=== PATIENT | female | born 1980 | race Caucasian/White ===

== ENCOUNTER 2018-06-29 17:34 | Emergency (ER) | payer BC, OTHER ==
[2018-06-29] MEDS ORDERED: NS 0.9% 1000 ML** 1,000 ML IV ONE (21:27)
--- NOTE | 2018-06-29 21:32 | ED ---
Syncope/Near Syncope - HPI Summary HPI Summary: This patient is a 37 year old female presenting to [facility] with a chief complaint of syncope 6 hours ago. She states she was working in her kitchen when the episode occurred. She said this has occurred before. She reports hearing the ocean post syncope. She said she experienced vertigo as well. She says she is currently feeling sleepy. - History Of Current Complaint Chief Complaint: EDSyncope Hx Obtained From: Patient Onset/Duration: Sudden Onset Timing: Seconds Associated Head Trauma: No Associated Signs And Symptoms: Dizzy - Allergies/Home Medications Allergies/Adverse Reactions: Allergies Allergy/AdvReac Type Severity Reaction Status Date / Time sulfamethoxazole Allergy Anaphylatic Verified 06/29/18 17:47 [From Bactrim] Shock trimethoprim [From Bactrim] Allergy Anaphylatic Verified 06/29/18 17:47 Shock Home Medications: Home Medications Amphetamine/Dextroamph ER(NF) [Adderal XR (NF)] 40 mg PO DAILY 06/29/18 [ History Confirmed 06/29/18] PMH/Surg Hx/FS Hx/Imm Hx Cardiovascular History: Denies: Hx Hypertension Respiratory History: Denies: Hx Asthma Infectious Disease History: No Infectious Disease History: Denies: Traveled Outside the [place] in Last 30 Days - Family History Known Family History: Negative: Cardiac Disease - Social History Alcohol Use: Occasionally Substance Use Type: Reports: None Smoking Status (MU): Former Smoker Review of Systems Negative: Fever Neurological: Other - Vertigo Positive: Syncope All Other Systems Reviewed And Are Negative: Yes Physical Exam - Summary Physical Exam Summary: VITAL SIGNS: Reviewed. GENERAL: Patient is a well-developed and nourished FEMALE who is lying comfortable in the stretcher. Patient is not in any acute respiratory distress. HEAD AND FACE: No signs of trauma. No ecchymosis, hematomas or skull depressions. No sinus tenderness. EYES: PERRLA, EOMI x 2, No injected conjunctiva, no nystagmus. EARS: Hearing grossly intact. Ear canals and tympanic membranes are within normal limits. MOUTH: Oropharynx within normal limits. NECK: Supple, trachea is midline, no adenopathy, no JVD, no carotid bruit, no c- spine tenderness, neck with full ROM. CHEST: Symmetric, no tenderness at palpation LUNGS: Clear to auscultation bilaterally. No wheezing or crackles. CVS: Regular rate and rhythm, S1 and S2 present, no murmurs or gallops appreciated. ABDOMEN: Soft, non-tender. No signs of distention. No rebound no guarding, and no masses palpated. Bowel sounds are normal. EXTREMITIES: FROM in all major joints, no edema, no cyanosis or clubbing. NEURO: Alert and oriented x 3. No acute neurological deficits. Speech is normal and follows commands. SKIN: Dry and warm Triage Information Reviewed: Yes Vital Signs On Initial Exam: Initial Vitals Temp Pulse Resp BP Pulse Ox 98.8 F 77 14 133/74 99 06/29/18 17:48 06/29/18 17:48 06/29/18 17:48 06/29/18 17:48 06/29/18 17:48 Vital Signs Reviewed: Yes Diagnostics - Vital Signs Vital Signs Temp Pulse Resp BP Pulse Ox 06/29/18 21:12 71 12 100 06/29/18 21:11 68 15 118/87 100 06/29/18 19:51 98.7 F 84 16 127/96 100 06/29/18 17:48 98.8 F 77 14 133/74 99 - Laboratory Result Diagrams: 06/29/18 21:49 06/29/18 21:49 Lab Statement: Any lab studies that have been ordered have been reviewed, and results considered in the medical decision making process. - EKG 2007 Cardiac Rate: NL EKG Rhythm: Sinus Rhythm - [address] Segment: Normal Ectopy: None Summary of EKG Findings: Normal axis, normal interval, no ischemic changes. Course/Dx Course Of Treatment: This patient is a 37 year old female presenting to [facility] with a chief complaint of syncope 6 hours ago. EKG and labs were unremarkable for cardiopulmonary problems. She was instructed to follow up with cardiology on Sunday and discharged. The patient is agreeable with this plan. - Diagnoses Provider Diagnoses: Syncope Discharge - Sign-Out/Discharge Documenting (check all that apply): Patient Departure - Discharge Patient Received Moderate/Deep Sedation with Procedure: No - Discharge Plan Condition: Stable Disposition: HOME Patient Education Materials: Syncope (ED) Referrals: [facility] [Provider Group] Additional Instructions: Return to ED with any new or worsening symptoms. Follow up with Cardiology in 2 days. No exercise until cleared by Cardiology. - Attestation Statements Document Initiated by Scribe: Yes Documenting Scribe: Keenan Biggs Provider For Whom Scribe is Documenting (Include Credential): Stephanie Oropeza MD Scribe Attestation: I, Keenan Biggs, scribed for Stephanie Oropeza MD on 06/30/18 at 0001. Status of Scribe Document: Ready
[2018-06-29 21:59] LABS: ABS Basophils 0.1 10^3/ul (0-0.2); ABS Eosinophils 0.5 10^3/ul (0-0.6); ABS Lymphocytes 1.4 10^3/ul (1.0-4.8); ABS Monocytes 0.5 10^3/ul (0-0.8); ABS Neutrophils 2.8 10^3/ul (1.5-7.7); ABS Nucleated RBC 0 10^3/ul; Eosinophil % 9.1 %; Hematocrit 39 % (33-41); Hemoglobin 12.9 g/dL (12.0-16.0); Lymphocyte % 25.8 %; Mean Corpuscular HGB Conc 33 g/dL (31-36); Mean Corpuscular Hemoglobin 32 pg (27-31); Mean Corpuscular Volume 96 fL (80-97); Mean Platelet Volume 7.4 fL (7.4-10.4); Nucleated Red Blood Cells % 0; Platelet Count 231 10^3/uL (150-450); Red Blood Count 4.09 10^6 /uL (3.70-4.87); Red Cell Distribution Width 13 % (10.5-15); White Blood Count 5.3 10^3/uL (3.5-10.8)
[2018-06-29 22:11] LABS: Activated Partial Thrombo Time 30.8 seconds (26.0-36.3); INR 0.97 (0.77-1.02)
[2018-06-29 22:19] LABS: ALT 9 U/L (7-52); AST 12 U/L (13-39); Albumin 3.8 g/dL (3.2-5.2); Albumin/Globulin Ratio 1.6 (1-3); Alkaline Phosphatase 46 U/L (34-104); Anion Gap 3 mmol/L (2-11); Blood Urea Nitrogen 13 mg/dL (6-24); CO2 Carbon Dioxide 27 mmol/L (22-32); Calcium 8.9 mg/dL (8.6-10.3); Chloride 108 mmol/L (101-111); EGFR African American 131.1 (>60); EGFR Non-African American 108.3 (>60); Globulin 2.4 g/dL (2-4); Glucose 101 mg/dL (70-100); Magnesium 2.1 mg/dL (1.9-2.7); Potassium 4.7 mmol/L (3.5-5.0); Sodium 138 mmol/L (135-145); Total Protein 6.2 g/dL (6.4-8.9)
[2018-06-29 22:25] LABS: HCG Pregnancy < 0.60 mIU/mL
[2018-06-29 22:40] LABS: TSH (Thyroid Stimulating Horm) 0.58 mcIU/mL (0.34-5.60)
[2018-06-30 00:12] VITALS: BP 107/75
== END 2018-06-30 00:17 | disposition home or self-care (01) ==
LOC: ED 17:34
DX: R55 Syncope and collapse (principal); Z87.891 Personal history of nicotine dependence; Z88.2 Allergy status to sulfonamides
CPT/HCPCS: 36415; 80053; 83735; 84443; 84484; 84702; 85025; 85610; 85730; 86703; 93005; 96360; 99283

== ENCOUNTER 2018-09-26 21:30 | Emergency (ER) | payer OTHER ==
--- NOTE | 2018-09-26 22:05 | ED ---
Laceration/Wound HPI - HPI Summary HPI Summary: Pt is a 38 y/o F presenting to the ED with a chief complaint of a facial injury. 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 She reports bleeding, edema, and facial pain, as well as dental pain. She is not injured anywhere else. She is unsure about when her last Tetanus shot was. - History of Current Complaint Stated Complaint: FELL ON MY FACE PER PT Time Seen by Provider: 09/26/18 21:43 Hx Obtained From: Patient Mechanism of Injury: Sharp/Blunt Trauma Onset/Duration: Sudden Onset, Lasting Minutes, Still Present Aggravating: Nothing Alleviating: Nothing Timing: Constant Onset Severity: Moderate Current Severity: Moderate Pain Intensity: 4 Pain Scale Used: 0-10 Numeric Associated Signs & Symptoms: Redness, Pain - Allergy/Home Medications Allergies/Adverse Reactions: Allergies Allergy/AdvReac Type Severity Reaction Status Date / Time sulfamethoxazole Allergy Anaphylatic Verified 09/26/18 21:35 [From Bactrim] Shock trimethoprim [From Bactrim] Allergy Anaphylatic Verified 09/26/18 21:35 Shock PMH/Surg Hx/FS Hx/Imm Hx Previously Healthy: Yes Endocrine/Hematology History: Denies: Hx Diabetes Cardiovascular History: Denies: Hx Hypertension Respiratory History: Denies: Hx Asthma Infectious Disease History: No Infectious Disease History: Denies: Traveled Outside the [place] in Last 30 Days - Family History Known Family History: Negative: Cardiac Disease - Social History Alcohol Use: Occasionally Hx Substance Use: No Substance Use Type: Reports: None Hx Tobacco Use: Yes Smoking Status (MU): Former Smoker Review of Systems Positive: Dental Pain, Other - bleeding in gums, broken teeth. Positive: Edema - upper lip Positive: Other - laceration to R upper lip All Other Systems Reviewed And Are Negative: Yes Physical Exam - Summary Physical Exam Summary: Constitutional: Well-developed, Well-nourished, Alert. (-) Distressed Skin: Warm, Dry HENT: Normocephalic. There is a tiny puncture just below the lower lip midline, with associated puncture on the inside of the lip. There is no injury to upper lip on the inside. The R primary and secondary incisors are chipped, but there is no pulp exposure of either tooth. There is mild blood present around the gumline where the teeth meet the gums. The R side of her upper lip has a laceration measuring approx. 3mm, not involving the Vermilion border, purely on the lip itself. Eyes: Conjunctiva normal Neck: Musculoskeletal ROM normal neck. (-) JVD, (-) Stridor, (-) Tracheal deviation Cardio: Rhythm regular, rate normal, Heart sounds normal; Intact distal pulses; The pedal pulses are 2+ and symmetric. Radial pulses are 2+ and symmetric. Pulmonary/Chest wall: Effort normal. (-) Respiratory distress, (-) Wheezes, (-) Rales Abd: Soft, (-) tenderness, (-) Distension, (-) Guarding, (-) Rebound Musculoskeletal: (-) Edema Neuro: Alert, Oriented x3 Psych: Mood and affect Normal Triage Information Reviewed: Yes Vital Signs On Initial Exam: Initial Vitals Temp Pulse Resp BP Pulse Ox 99.6 F 112 16 148/78 100 09/26/18 21:30 09/26/18 21:30 09/26/18 21:30 09/26/18 21:30 09/26/18 21:30 Vital Signs Reviewed: Yes Procedures - Laceration/Wound Repair 1 Location: mouth - R upper lip Description: Irregular - shaped Anesthesia: Local, 1.0%, Lido Betadine Prep?: No - soap and water Laceration/Wound Explored: clean Closure: Single Layer Debridement: minimal Suture Type: Chromic - 4-0 Number of Sutures: 3 Layer Closure?: Yes Sterile Dressing Applied?: Yes 2 Location: mouth Description: Linear Anesthesia: Local, 1.0%, Lido Betadine Prep?: No - soap and water Laceration/Wound Explored: clean Closure: Single Layer Debridement: minimal Suture Type: Chromic - 4-0 Number of Sutures: 1 Layer Closure?: Yes Sterile Dressing Applied?: Yes Diagnostics - Vital Signs Vital Signs Temp Pulse Resp BP Pulse Ox 09/26/18 21:30 99.6 F 112 16 148/78 100 - Laboratory Lab Statement: Any lab studies that have been ordered have been reviewed, and results considered in the medical decision making process. Laceration Repair Course/Dx - Course Course Of Treatment: Pt is a 38 y/o F presenting to the ED with a chief complaint of a facial injury. 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 She reports bleeding, edema, and facial pain, as well as dental pain. She is not injured anywhere else. She is unsure about when her last Tetanus shot was. On exam, there is a tiny puncture just below the lower lip midline, with associated puncture on the inside of the lip. There is no injury to upper lip on the inside. The R primary and secondary incisors are chipped, but there is no pulp exposure of either tooth. There is mild blood present around the gumline where the teeth meet the gums. The R side of her upper lip has a laceration measuring approx. 3mm, not involving the Vermilion border, purely on the lip itself. Pt's lacerations were closed with 4-0 chromic, the first lac was crescent shaped and closed with 3 sutures, and the second was closed with 1 suture. The area was prepped with soap and water, sterile technique was used, and the area was numbed with lidocaine 1%. The pt was stable before and after procedure. She will be d/c'ed with dx including lip laceration and tooth avulsion. She is agreeable with this plan, and states that she will be seeing a dentist tomorrow for her broken teeth. - Clinical Impression Provider Diagnoses: Lip laceration, Tooth avulsion Discharge - Sign-Out/Discharge Documenting (check all that apply): Patient Departure Patient Received Moderate/Deep Sedation with Procedure: No - Discharge Plan Condition: Stable Disposition: HOME Patient Education Materials: Laceration (ED) Referrals: [facility] [Outside] - Billing Disposition and Condition Condition: STABLE Disposition: Home - Attestation Statements Document Initiated by Scribe: Yes Documenting Scribe: Elmira Tapia Provider For Whom Miracle is Documenting (Include Credential): Thaddeus Collazo MD. Scribe Attestation: Elmira Hernandez scribed for Thaddeus Collazo MD. on 09/27/18 at 0625. Scribe Documentation Reviewed: Yes Provider Attestation: The documentation as recorded by the michaelibe, Elmira Tapia accurately reflects the service I personally performed and the decisions made by me, Thaddeus Collazo MD. Status of Scribe Document: Viewed
[2018-09-26] MEDS ORDERED: Lidocaine 1% INJ* 10 MG/ML 30 ML SDV INJ ONE (22:06)
--- OUTSIDE RECORDS SUMMARY | 2018-09-26 22:13 | XMS REPORT | Continuity of Care Document ---
:1980 External Reference #:[id number] Author Name Doreen Hensley NP Address [address] [facility] [facility] [place] [address] Care Team Providers Name Role Phone Halima Morin M.D. Care Team Information Farm Machine Tender Unavailable Halima Morin M.D. 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 Onset: 08/08/2016 Resolved Problems Syncope and collapse Mia Hewitt M.D. Onset: 05/15/2011 Resolved: 03/07/2016 Malaise and fatigue Mia Hewitt M.D. Onset: 05/15/2011 Resolved: 03/07/2016 Vitamin D deficiency Mia Hewitt M.D. 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 Abuse No history of abuse Tobacco Use Start: Unknown Former Cigarette 1/2 to 1 ppd for 8 End: Unknown Smoker years, ages [age] ETOH Use Social Alcohol ETOH Use usually has a glass of occasionally has three wine w/ dinner glasses of wine at night Tobacco Use Start: Unknown Patient is a former End: Unknown smoker Recreational Drug Use Denies Drug Use Smoking Status Reviewed: 09/16/18 Patient is a former smoker Exercise Type/Frequency Exercises regularly Current Seat Belt/Car Seat Always uses a seat belt Guns in Home There are not guns in the home Smoke Alarms There are smoke alarms in the house Allergies, Adverse Reactions, Alerts Active Allergies Reaction Severity Comments Date Mushrooms Urticaria 11/18/2008 Wellbutrin SR weepy, confused 11/18/2008 Seasonal 11/04/2009 Bactrim hives, tongue swelling 06/30/2014 Medications Active Medications SIG Qnty Indications Ordering Provider Date Mirena (52 MG) 08/2018 Doreen Martinez 09/16/2018 20mcg/24HR THANH Hensley IUD Adderall XR take 2 capsule 60caps F90.0 Doreen Martinez 05/14/2017 20mg Caps ER by mouth every THANH Hensley 24HR day maximum daily dose of 2 per day Multivitamin Adult 1 by mouth every Unknown day Tablets History Medications Aviane 1 by mouth every 28tabs Z30.41 Doreen Martinez 05/02/2018 - 0.1-20mg-mcg day THANH Hensley 09/16/2018 Tablets Cyclobenzaprine HCL 1 by mouth every 45tabs M54.2 Yocasta Cutler, 2015 - 5mg 6-8h during the [facility] 03/31/2016 Tablets day, 2 by mouth at bedtime as needed Note No Work Todd was seen by M54.2 Yocasta Cutler, 09/15/2015 - me today and july [facility] 03/07/2016 not return to work until Sunday 7\\4\\16 Adderall XR take two tablets 30caps F90.0 Felicia Henning, 08/18/2015 - 20mg Caps daily 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 05/14/2017 ER 24HR day maximum daily dose of 2 per day Azithromycin take 2 tablets by 12tabs J06.9 Yocasta Cutler, 06/23/2015 - 250mg mouth x 3d then SHOTBLASTER 08/18/2015 Tablets take 1 tablet daily for next 6 days Symbicort 2 puff twice a sample J06.9 Yocasta Cutler, 06/23/2015 - day SHOTBLASTER 08/18/2015 160-4.5mcg/Act Aerosol Plan B One-Step Take one tablet 1tabs Z30.012 Felicia Henning, 12/19/2014 - 1.5mg today 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 06/23/2015 Tablets Aviane 1 by mouth every 28tabs Z30.41 Felicia Henning, 12/19/2014 - 0.1-20mg-mcg day 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 05/14/2017 Tablets Adderall XR 2 by mouth every 60caps F90.0 Felicia Henning, 07/31/2014 - 20mg Caps day 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 08/18/2015 ER 24HR Note For Work patient was seen Mia Desai 07/24/2011 - in the office Paulo Hewitt 06/30/2014 today for medical reason Trena as directed 3tabs Mia Desai 12/05/2009 - 3-0.02mg Tablets Paulo Hewitt 05/15/[address] brain - 1units 780.2 Kade Ambriz 11/04/2009 - without contrast Paulo Alaniz 12/03/2009 - syncope Chantix 1 starter pack 1units 305.1 Mia Desai 12/09/2008 - for a month,then Paulo Hewitt 03/09/2009 refill maintenance packs Zithromax 2 po qd today , 1tabs 466.0 Mia Desai 11/18/2008 - 250mg Tablets then 1 po qd Paulo Hewitt 11/27/2008 times 4 Nicotrol Inhaler inhale one q 2 168units 305.1 Mia Desai 10/23/2008 - 10mg hours prn, no Paulo Hewitt 11/04/2009 Inhaler more than 16 in a day, read directions Wellbutrin SR start 1 po q am 60tabs 305.1 Mia Desai 10/23/2008 - 150mg for three days Paulo Hewitt 11/18/2008 Tablets ER 12HR then increase to bid Trena as directed 3tabs Mia Desai - 3-0.02mg Tablets Paulo Hewitt 11/04/2009 Astelin 2 sprays tid prn 30ml Mia Esteban. - 137mcg/[place] runny nose Paulo Hewitt 06/30/2014 Solution Multi-Vitamin 1 po qd Unknown - Tablets 06/30/2014 Adderall XR 2 by mouth every 60caps 314.00 Peggy - 25mg Caps day Mindi, SHOTBLASTER 07/31/2014 ER 24HR Immunizations CPT Code Status Date Vaccine Lot # [id number] Given 12/19/2014 Influenza Vac, Quadrivalent, Slit Virus, Im [id number] Given 05/15/2011 Tdap Tetanus, W Pertussis [id number] Given 05/15/2011 DO Not Use Split Influenza Virus Vaccine [id number] Given 10/23/2008 Tdap Tetanus, W Pertussis [id number] Vital Signs Date Vital Result Comment 09/16/2018 6:34pm BP Systolic 100 mmHg BP Diastolic 70 mmHg Heart Rate 72 /min Body Temperature 98.6 F Respiratory Rate 16 /min Height 66 inches 5'6" Weight 131.00 lb BMI (Body Mass Index) 21.1 kg/m2 05/02/2018 11:59am BP Systolic 102 mmHg BP Diastolic 70 mmHg Heart Rate 68 /min Body Temperature 98.8 F Respiratory Rate 15 /min Height 66 inches 5'6" Weight 130.00 lb BMI (Body Mass Index) 21.0 kg/m2 05/14/2017 1:46pm BP Systolic 118 mmHg BP Diastolic 76 mmHg Heart Rate 78 /min Body Temperature 98.1 F Respiratory Rate 16 /min Height 66 inches 5'6" Weight 132.38 lb BMI (Body Mass Index) 21.4 kg/m2 Right Visual Acuity Distance 20/20 Left Visual Acuity Distance 20/20 08/08/2016 8:07pm BP Systolic 118 mmHg BP Diastolic 80 mmHg Heart Rate 72 /min Body Temperature 98.9 F Respiratory Rate 16 /min Height 66 inches 5'6" Weight 135.00 lb BMI (Body Mass Index) 21.8 kg/m2 03/31/2016 12:59pm BP Systolic 110 mmHg BP Diastolic 70 mmHg Heart Rate 60 /min Body Temperature 99.0 F Respiratory Rate 16 /min Height 66 inches 5'6" Weight 135.00 lb BMI (Body Mass Index) 21.8 kg/m2 09/15/2015 1:23pm BP Systolic 112 mmHg BP Diastolic 80 mmHg Heart Rate 78 /min Body Temperature 98.6 F Respiratory Rate 16 /min Height 66 inches 5'6" 08/18/2015 1:56pm BP Systolic 104 mmHg BP Diastolic 74 mmHg Heart Rate 60 /min Body Temperature 98.4 F Respiratory Rate 16 /min Height 66 inches 5'6" Weight 140.00 lb BMI (Body Mass Index) 22.6 kg/m2 06/23/2015 9:07am BP Systolic 106 mmHg BP Diastolic 76 mmHg Heart Rate 68 /min Body Temperature 98.2 F Respiratory Rate 16 /min Height 66 inches 5'6" Weight 140.00 lb BMI (Body Mass Index) 22.6 kg/m2 12/19/2014 11:43am BP Systolic 102 mmHg BP Diastolic 70 mmHg Heart Rate 72 /min Body Temperature 98.5 F Respiratory Rate 16 /min Height 66 inches 5'6" Weight 131.00 lb BMI (Body Mass Index) 21.1 kg/m2 07/31/2014 2:03pm BP Systolic 124 mmHg BP Diastolic 84 mmHg Heart Rate 72 /min Body Temperature 98.4 F Respiratory Rate 18 /min Height 66 inches 5'6" Weight 135.00 lb BMI (Body Mass Index) 21.8 kg/m2 06/30/2014 11:20am BP Systolic 120 mmHg BP Diastolic 80 mmHg Heart Rate 68 /min Body Temperature 98.6 F Respiratory Rate 16 /min Height 66 inches 5'6" Weight 139.00 lb BMI (Body Mass Index) 22.4 kg/m2 07/24/2011 9:35am BP Systolic 122 mmHg BP Diastolic 90 mmHg Heart Rate 84 /min Body Temperature 98.0 F Height 66 inches 5'6" Weight 129.00 lb BMI (Body Mass Index) 20.8 kg/m2 05/15/2011 9:46am BP Systolic 112 mmHg BP Diastolic 80 mmHg Heart Rate 78 /min Body Temperature 98.1 F Height 66 inches 5'6" Weight 131.00 lb BMI (Body Mass Index) 21.1 kg/m2 11/18/2009 1:43pm BP Systolic 110 mmHg BP Diastolic 70 mmHg Heart Rate 80 /min Height 66 inches 5'6" Weight 128.00 lb BMI (Body Mass Index) 20.7 kg/m2 11/04/2009 6:50pm BP Systolic 120 mmHg BP Diastolic 80 mmHg Heart Rate 68 /min Body Temperature 99.8 F Respiratory Rate 20 /min Height 66 inches 5'6" Weight 130.00 lb BMI (Body Mass Index) 21.0 kg/m2 12/09/2008 6:33pm BP Systolic 114 mmHg BP Diastolic 70 mmHg Heart Rate 72 /min Respiratory Rate 18 /min Height 66 inches 5'6" Weight 137.00 lb BMI (Body Mass Index) 22.1 kg/m2 11/18/2008 7:25pm BP Systolic 120 mmHg BP Diastolic 72 mmHg Heart Rate 80 /min Body Temperature 99.0 F Height 66 inches 5'6" Weight 135.00 lb BMI (Body Mass Index) 21.8 kg/m2 10/23/2008 10:19am BP Systolic 100 mmHg BP Diastolic 60 mmHg Heart Rate 60 /min Height 66 inches 5'6" Weight 132.00 lb BMI (Body Mass Index) 21.3 kg/m2 Results Test Date Facility Test Result H/L Range Note Comprehensive Metabolic 05/15/2017 Estevan Haley([facility]) Sodium 142 mEq/L 134-149 Prof Potassium 4.1 mEq/L 3.6-5.5 Chloride 103 mEq/L 94-112 Carbon Dioxide 27 mEq/L 21-32 Glucose 116 mg/dL High 70-105 1 BUN 18 mg/dL 6-26 Creatinine 0.7 mg/dL 0.6-1.4 BUN/Creat Ratio 25.7 CALC 8.0-36.0 Calcium 9.5 mg/dL 8.6-10.2 Total Protein 6.7 g/dL 6.4-8.3 Albumin 4.4 g/dL 3.8-5.5 Globulin 2.3 g/dL 2.0-4.8 A/G Ratio 1.9 CALC 0.6-2.3 Alk. Phosphatase 39 U/L 30-110 Alt (SGPT) 11 U/L 7-35 Ast (Sgot) 13 U/L 5-34 Total Bilirubin 0.7 mg/dL 0.2-1.3 GFR Non- >60 ml/min/1.73m^ >=60 GFR >60 ml/min/1.73m^ >=60 Lipid Profile 05/15/2017 Barreto Sudha([facility]) Cholesterol 205 mg/dL High 120-200 Triglycerides 112 mg/dL 30-200 HDL Cholesterol 104 mg/dL High 30-85 2 LDL (Calculated) 79 CALC 0-129 VLDL Cholesterol 22 mg/dL 0-50 HDL Risk Factor 2.0 CALC 0.0-4.4 Laboratory test finding 05/15/2017 Barreto Sudha([facility]) TSH 1.70 mIU/L 0.50-6.00 CBC Electronic a 05/15/2017 Barreto Sudha([facility]) WBC 6.0 x10^3/UL 4.0- 10.0 RBC 4.34 x10^6/UL 3.93-6.00 HGB 13.8 g/dL 12.0-17.0 HCT 41 % 35-50 MCV 94.5 fL 80.0-95.0 MCH 31.8 pg 25.6-32.2 MCHC 33.7 g/dL 32.2-36.0 RDW-CV 13.0 % 11.6-14.4 PLT 241 x10^3/UL 163-400 MPV 9.6 fL 9.4-12.4 Dewayne# 2.88 x10^3/UL 1.56-6.13 Lymph# 1.93 x10^3/UL 1.18-3.74 Johnson# 0.61 x10^3/UL 0.24-0.82 Eos # 0.6 x10^3/UL High 0.0-0.5 Baso # 0.03 x10^3/UL 0.01-0.08 Dewayne% 47.6 % 34.0-70.0 Lymph % 32.0 % 20.0-52.0 Johnson% 10.1 % 5.0-12.0 Eos% 9.6 % High 0.7-7.0 Baso% 0.5 % 0.1-1.2 Laboratory test 05/14/2017 [facility] [place] Thinprep SEE RESULT 3 finding w/rfx([facility]) BELOW Ua - Micro (a) 06/30/2014 [facility] Appearance clear (607)- - Color yellow Glucose, Urine (Fma/CMC/CTX) neg Bilirubin neg Ketones trace SP Grav >1.030 Blood trace-intact # PH 6.0 Protein neg Urobil 0.2 Nitrite neg Leukocytes (Fma/CMC/[facility]) neg Hyaline - /Lpf Granular - /Lpf WBC (Fma,[facility]) 4-5 # RBC 0-3 # Mucus - /Lpf Epith large amt /Lpf # Bacteria trace /Hpf # Amorphous small amt /Lpf # Crystals, Fluid (Fma/CMC/CTX) - Z#Comments not clean catch ## Anti Viral AB 06/30/2014 [facility] HIV 1/O/2 <1.00 <1.00 4 Screen 28 [facility] [place] [address] [phone] HIV 1/O/2 Abs, Qual Non Reactive Non Reactive HSV 1 And 2 06/30/2014 [facility] HSV 1 IgG, <0.91 index 0.00-0.90 5 Specific AB Igg 28 [facility] [place] [address] [phone] HSV 2 IgG, Type Spec <0.91 index 0.00-0.90 6 Chlamydia/GC Thin 06/30/2014 [facility] Chlamydia/GC, Marija SEE BELOW 7 Prep Vial 28 [place], [place] [id number] [phone] Source- Thin Prep * Chlamydia, Marija Negative Negative 8 Gonococcus, Marija Negative Negative 9 Laboratory test 06/30/2014 [facility] Thin Prep SEE 10 finding 28 [facility] W/HPV(Lsil/ZELALEM/Asc) NOTE [place], [place] [id number] [phone] Laboratory test 07/24/2011 [facility] Cortisol (Am) 8.2 4.3 finding 28 [facility] g/dL -22 [place] [address] .4 [phone] Comprehensive 07/24/2011 Barreto Sudha([facility]) Albumin 4.8 3.8 Metabolic Prof g/dL -5. 5 Alk. Phos. 80 U/L 30-110 Alt (SGPT) 16 U/L 7-35 Ast (Sgot) 18 U/L 5-34 BUN 14 mg/dL 6-26 Calcium 9.9 mg/dL 8.6-10.2 Chloride 101 mEq/L 94-112 Creatinine 0.7 mg/dL 0.6-1.4 Carbon Dioxide 26 mEq/L 21-32 Glucose 93 mg/dL 70-105 Sodium 139 mEq/L 134-149 Total Bilirubin 0.2 mg/dL 0.2-1.3 Total Protein 7.5 g/dL 6.3-8.1 Potassium 4.0 mEq/L 3.6-5.5 Globulin 2.7 g/dL 2.0-4.8 A/G Ratio 1.7 Calc 0.6-2.2 BUN/Creat Ratio 20.1 Calc 8.0-36.0 Laboratory test 05/15/2011 [facility] Vitamin D, 20.6 ng/mL Low 30.0-100.0 11 finding [address] [id number] [phone] Heavy Metals II 05/15/2011 [facility] Lead, Blood 4 g/dL 0-19 12 Blood 28 [place], [place] [id number] [phone] Arsenic, Blood 6 ug/L 2-23 13 Mercury, Blood 4.6 ug/L 0.0-14.9 14 Cadmium, Blood 0.6 ug/L 0.0-1.2 15 CBC Electronic (a) 05/15/2011 [facility] WBC 4.4 3.6-9.6 (607)- - RBC 4.31 3.90-5.70 Hemoglobin (Fma/CMC/CTX) 14.0 g/dL 12.1 - 17.2 Hematocrit (Fma/CMC/CTX) 41.4 % 36.1 - 50.3 Platelets 210 10^3/ul 150-400 Lymph% 33.9 20.5-51.1 Mixed% 5.4 Neutrophils % 60.7 Mean Corpuscular Vol 96 82.2-97.4 Mean Corpuscular Hemoglobin 32.3 27.6-33.3 Mean Corpuscular Hemo Concen 33.7 32.0-36.0 RDW 11.6 11.6-13.7 Mean Platelet Volume 7.7 6.5-11.0 Laboratory test finding 05/15/2011 Barreto Sudha([facility]) B12 445 pg/mL 230 -1050 TSH 1.79 mIU/L 0.50-6.00 Comp Metabolic Panel 11/04/2009 [facility] Sodium 137 mmol/L 135-145 16 Potassium 4.3 mmol/L 3.5-5.0 Chloride 105 mmol/L 101-111 Co2 (Carbon Dioxide) 24.0 mmol/L 22-32 Anion Gap 8.0 mmol/L 2-11 17 Glucose 88 mg/dL 70-100 18 BUN 8 mg/dL 6-24 Creatinine 0.90 mg/dL 0.50-1.40 One Over Creatinine 1.10 BUN/Creatinine Ratio 8.9 8-20 Calcium 9.8 mg/dL 8.1-9.9 19 Total Protein 7.2 GM/DL 6.2-8.1 Albumin 4.7 GM/DL 3.6-5.4 Globulin 2.5 GM/DL 2-4 Albumin/Globulin Ratio 1.9 1-3 Bilirubin Total 1.2 mg/dL 0.4-1.5 20 Alkaline Phosphatase 56 U/L 30-110 Alt (SGPT) 16 U/L 14-54 Ast (Sgot) 21 U/L 12-42 eGFR Non- 78.7 > 60 eGFR 95.2 > 60 21 Laboratory test finding 11/04/2009 [facility] TSH 0.99 MIU/ML 0.34-5.60 CBC With Electronic Diff 11/04/2009 [facility] White Blood Count 6.9 CUMM 4.8- 10.8 Red Cell Count 4.43 CUMM 4.2-5.4 Hemoglobin 14.5 g/dL 12.0-16.0 Hematocrit 43 % 35-47 Mean Corpuscular Volume 96 um3 79-97 Mean Corpuscular Hemoglob 33 pg High 27-31 Mean Corpuscular HGB Cone 34 g/dL 32-36 Redcell Distribution WDTH 13 % 10.5-15 Platelet Count 202 CUMM 150-450 Mean Platelet Volume 6.8 um3 Low 7.4-10.4 Gran % 46.3 % 38-83 Lymph % 35.0 % 25-47 Mononuclear % 11.8 % High 1-9 Eosinophil % 6.4 % High 0-6 Basophil % 0.5 % 0-2 Abs Lymphs 2.4 1.0-4.8 Abs Mononuclear 0.8 0-0.8 Absolute Neutrophil Count 3.2 1.5-7.7 Abs Eosinophils 0.4 0-0.6 Abs Basophils 0 0-0.2 Laboratory test 11/04/2009 [facility] Erythrocyte Sed Rate 1 MM/HR 0-15 finding Ua - Non Micro (Fma) 10/23/2008 [facility] Appearance clear (607)- - Color yellow Glucose - Bilirubin - Ketones trace SP Grav 1.025 Blood - PH 6.0 Protein - Urobil 0.2 Nitrite - Leukocytes (Fma/[facility]) - Laboratory test 10/23/2008 Estevan Sudha([facility]ma) Cholesterol 186 mg/dL 120 -200 finding HDL 99 mg/dL High 30-85 22 Laboratory test 10/23/2008 [facility] Thin Prep SEE NOTE [address] W/HPV(Lsil/ZELALEM/[place]) [place] [address] [phone] 1 NON-FASTING 2 consistent w/ previous results 3 SEE RESULT BELOW Name: TODD ROGERS : [address]: Halima Morin MD Acct: [id number] Unit: [id number] AGE: 36 Location: [facility] Re05/14/17 SEX: F Status: REG REF SPEC: [id number] RONY: 05/14/17-1443 [facility] DR: Halima Morin MD REQ: [id number] RECD: 05/14/17 STATUS: SOUT _ ORDERED: TP IMAGE ANAL, HPV/Thin Prep, HPV 16/18 GENE COMMENTS: [id number] Negative for Intraepithelial lesion or Malignancy A. Ectocervical/Endocervical Specimen Adequacy: Satisfactory of evaluation Transformation zone component not identified Patient Information: HPV: High risk HPV RNA testing regardless of pap results. HPV 16/18 Genotype Reflex Actual Specimen Date: 04/13/17 ?: N Post Menopausal?: N Hysterectomy?: N Previous Abnormal Pap Smears?:Y If Yes, enter Diagnosis: unknown Date Time Test Result Flag (u) Normal Range 05/14/17 1443 @ HPV RNA RFLX GE Negative Negative @ @ The high-risk HPV types detected by the assay include: 16, @ 18, 31, 33, 35, 39, 45, 51, 52, 56, 58, 59, 66, and 68. Signed (signature on file) DENNY Patten(ASCP) 05/15 1344 This Pap test was evaluated with the assistance of the [employer] Test Imaging System. Due to cytologic findings at the double end chucking machine operator microscope, comprehensive manual rescreening by a Floor Covering Layer may be required. The Pap Smear is a screening test designed to aid in the detection of premalignant and malignant conditions of the uterine cervix. It is not a diagnostic procedure and should not be used as the sole means of detecting cervical cancer. Both false- positive and false- negative reports do occur. Depending on your risk status, a Pap smear should be obtained and evaluated every 1-3 years. END OF REPORT * ML=Testing performed at Main Lab DEPARTMENT OF PATHOLOGY, [address] [place] [address] Lee Christian M.D. Director [facility] # [id number] 4 Index Value: Specimen reactivity relative to the negative cutoff. 5 Negative <0.91 Equivocal 0.91 - 1.09 Positive >1.09 Note: Negative indicates no antibodies detected to HSV-1. Equivocal may suggest early infection. If clinically appropriate, retest at later date. Positive indicates antibodies detected to HSV-1. 6 Negative <0.91 Equivocal 0.91 - 1.09 Positive >1.09 Note: Negative indicates no antibodies detected to HSV-2. Equivocal may suggest early infection. If clinically appropriate, retest at later date. Positive indicates antibodies detected to HSV-2. 7 2 sst 1 thin prep 8 -[address] [phone] The specimen received for Ct/Ng testing was removed from the Cy[employer] vial by the ordering institution. Specific procedures outlined in our Directory of Services and in the ThinPrep 2000 or ThinPrep 3000 Printing Equipment Mechanic's Manual available from [employer] must be followed to appropriately remove the desired aliquot volume to avoid cross- specimen contamination. [facility] [phone] 10 [facility] [employer] DEPARTMENT OF PATHOLOGY or Ext. [phone], Fax TRANSPORTATION WORKER CYTOLOGY REPORT Patient: TODD ROGERS : 1980 AGE: 33 Y SEX: F Acct: [id number] Procedure Date: 06/30/2014 Date Received: 07/02/2014 Requesting Provider: YANDEL LOJA Location: [facility] Case No. [id number] Requisition #: [id number] CYTOLOGIC INTERPRETATION: SPECIMEN ADEQUACY SATISFACTORY FOR EVALUATION, ENDOCERVICAL TRANSFORMATION ZONE COMPONENT PRESENT GENERAL CATEGORIZATION NEGATIVE FOR INTRAEPITHELIAL LESIONS OR MALIGNANCY RECOMMENDATIONS Refer to the corresponding web sites for 2012 updated general recommendation guidelines of U.S. preventive service task force for cervical cancer screening, and www.asccp.org//ekjjfwquf2112. COMMENTS Thin Prep Pap tests are examined with an FDA approved location-guidance system. SPECIMEN SUBMITTED: * * (HPVII) THIN PREP W/HPV (LSIL/ASC/ZELALEM) * * SOURCE NOT PROVIDED RELEVANT HISTORY: Comment: NONE PROVIDED Screened/Rescreened Electronically Signed Sign Out Date/Time: by: by: MARQUEZ MEDEL, 07/02/2014 16:04 CT(ASCP) Note: The Pap smear is a screening test designed to aid in the detection of premalignant and malignant conditions of the uterine cervix. It is not a diagnostic procedure and should not be used as the sole means of detecting cervical cancer. Both false-positive and false-negative reports do occur. 00 UA Pap Smear performed at [facility] Dir: Bonnie Teague MD, [address] [place] [address] 01 [facility]actor [facility] [place] Dir: Ewelina De La Cruz MD, [address] [facility] [address] 02 Lab [facility] Dir: Rafat Schroeder MD, [address] [facility] [address] For inquiries regarding HPV test results, the physician may contact [employer]: [phone] . 11 Vitamin D deficiency has been defined by the [place] of [employer] and an Endocrine Society practice guideline as a level of serum 25-OH vitamin D less than 20 ng/mL (1,2). The Endocrine Society went on to further define vitamin D insufficiency as a level between 21 and 29 ng/mL (2). 1. IOM ([place] of [employer]). 2010. Dietary reference intakes for calcium and D. [place]: The National Academies Press. 2. Gabriel MF, Sandra HATFIELD, Michele LINDER, et al. Evaluation, treatment, and prevention of vitamin D deficiency: an Endocrine Society clinical practice guideline. JCEM. 2010; 96(7):1911-30. 12 The Centers for Disease Control and Prevention states blood lead levels less than 10 ug/dL in children have been associated with numerous adverse health effects. [facility] Guidelines: Blood lead levels in the range 5-9 ug/dL have been associated with adverse health effects in children aged 6 years and younger. . Environmental Exposure: WHO <20 Occupational Exposure: OSHA Lead Std 40 MIL 30 . Detection Limit=1 13 Detection Limit=1 14 Environmental Exposure: <15.0 Occupational Exposure: MIL - Inorganic Mercury: 15.0 . Detection Limit=1.0 15 Environmental Exposure: Nonsmokers 0.3 - 1.2 Smokers 0.6 - 3.9 Occupational Exposure: OSHA Cadmium Std 5.0 MIL 5.0 . Detection Limit=0.5 16 PATIENT STATES SHE IS WAITING FOR HER CT-SCAN RESULTS. 17 Anion gap measurement may be of limited value in the presence of any alkalosis, especially in a combined acid base disorder. . 18 Note change in reference range as of 11/07/07. The change was based on recommendations from the [place] [employer]. 19 Please note change in reference range effective 07 . 20 A metabolite of Naproxen, O-desmethylnaproxen, has been shown to interfere with the [place] method for measuring total bilirubin. Samples from patients who have taken Naproxen have shown spurious elevation in total bilirubin levels. 21 Because ethnic data is not always readily available, this report includes an eGFR for both -Americans and non- Americans. The National Kidney Disease Education Program (NKDEP) does not endorse the use of the MDRD equation for patients that are not between the ages of 18 and 70, are , have extremes of body size, muscle mass, or nutritional status, or are non- or non-. According to the National Kidney Foundation, irrespective of diagnosis, the stage of the disease is based on the level of kidney function: Stage Description GFR(mL/min/1.73 m(2)) 1 Kidney damage with normal or decreased GFR 90 2 Kidney damage with mild decrease in GFR 60-89 3 Moderate decrease in GFR 30-59 4 Severe decrease in GFR 15-29 5 Kidney failure <15 (or dialysis) 22 result ayden'd 23 [employer] DEPARTMENT OF PATHOLOGY or Extension [phone] TRANSPORTATION WORKER CYTOLOGY REPORT PATIENT: TODD ROGERS : 1980 AGE: 28 Y SEX: F ACCT: [id number] PROCEDURE DATE: 10/23/2008 DATE RECEIVED: 10/26/2008 REQUESTING PHYSICIAN: MIA HEWITT MD LOCATION: [facility] Case No. [id number] PATIENT DATA: [id number] SPECIMEN SUBMITTED: * * (HPVII) THIN PREP W/HPV (LSIL/ASC/ZELALEM) * * ENDOCERVICAL RELEVANT HISTORY: LMP: 10/05/2008 Contraceptive: BC PILL Prev.normal: 1 YR AGO SPECIMEN ADEQUACY SATISFACTORY FOR EVALUATION NO ENDOCERVICAL COMPONENT, EXCESSIVE CYTOLYSIS, GENERAL CATEGORIZATION NEGATIVE FOR INTRAEPITHELIAL LESIONS OR MALIGNANCY ADDITIONAL COPIES SENT TO: Screened/Rescreened by: Electronically Signed by: DENNY BOWER(ASCP) Signed Date and Time: 10/27/2008 11:43 Thin Prep Pap tests are examined with an FDA-approved location-guidance system (41382). Performed @ [facility] [address] [place] [id number] "" Procedures Date Code Description Status 05/14/2017 96170 Vision Test- screening test of visual acuity, Completed quantitative, bila 05/15/2011 47242 Electrocardiogram Complete Completed 11/04/2009 56988 Electrocardiogram Complete Completed Encounters Type Date Location Provider Dx Diagnosis Office Visit 05/02/2018 Main Office Halima Morin M.D. 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) w/o abn findings F90.0 Attn-defct hyperactivity disorder, predom inattentive type Z30.41 Encounter for surveillance of contraceptive pills Office Visit 06/23/2015 9:00a Main Office Yocasta Cutler J06.9 Acute upper SHOTBLASTER respiratory infection, unspecified Office Visit 12/19/2014 11:30a Main Office Felicia Henning Z30.012 Encounter for 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 prescription of emergency contraception Z30.011 Encounter for initial prescription of contraceptive pills Z23 Encounter for immunization Office Visit 07/31/2014 2:00p Main Office Yocasta Cutler, 314.00 Attention Deficit SHOTBLASTER Disorder W/O Mention Of Hyperactivity Office Visit 06/30/2014 11:00a Main Office Peggy 314.00 Attention Deficit Mindi, SHOTBLASTER Disorder W/O Mention Of Hyperactivity V69.2 Sexual Behavior High Risk V72.31 Routine Dat Instructor Examination 599.72 Microscopic Hematuria Office Visit 07/24/2011 9:10a [facility] Mia Desai 780.2 Syncope & Paulo Hewitt Collapse 780.79 Malaise And Fatigue Other 281.1 Vitamin B12 Deficiency Anemia Other 268.9 Vitamin D Deficiency Unspec Office Visit 05/15/2011 9:40a [facility] Mia Desai 780.2 Syncope & Paulo Hewitt Collapse 780.79 Malaise And Fatigue Other 268.9 Vitamin D Deficiency Unspec v04.81 Need For Prophylactic Vaccination & Inoculation/Influenza v06.5 Tetanus Diphtheria (DT) Office Visit 11/18/2009 1:40p Main Office Kade Ambriz 780.2 Syncope & Collapse Paulo Alaniz Office Visit 11/04/2009 6:40p Main Office Kade Ambriz 780.2 Syncope & Collapse Paulo Alaniz Office Visit 12/09/2008 6:20p Main Office Mia Hewitt, 305.1 Tobacco Use Disorder M.D. Office Visit 11/18/2008 7:20p Main Office Mia Hewitt, 466.0 Bronchitis Acute M.D. Office Visit 10/23/2008 10:00a Main Office Mia Hewitt, V70.0 Examination General M.D. Medical Routine [facility] 305.1 Tobacco Use Disorder 477.9 Rhinitis Allergic Cause Unspec V25.09 Contraceptive Management Other V06.5 Tetanus Diphtheria (DT) Plan of Treatment 09/16/2018 - Doreen Hensley, NPF90.0 Attention-deficit hyperactivity disorder, predominantly inatComments:stable on current medicationsFollow up:6 monthsAllNew Medication:Mirena (52 MG) 20 mcg/24HR - 08/2018Comments:Medication Management Patient Understands medications he 's taking? Yes No Are there Barriers to Adherence? Yes No Has the patient been asked about herbal supplements and therapies, andOTC meds? Yes No Care Plan1. Patient has been queried about patient's goals/preferences and functional/ lifestyle goals at relevant visits. If relevant, describe: na2. Treatment goals as explained to the patient: above3. Are there barriers to meeting treatment goals? Yes No If Yes, please describe:4. Self-Management goals as described to the patient: Yes NoAs always, we strongly encourage a healthy diet and making physical activity a part of your every day life. If you have questions about how or where to start, please contact the office.Follow up:Med Check Due: 03/2019 In order to be in compliance with [place] guidelines - we must see you in office every 6 months for a special review on any controlled substances. If you have not been seen in > 6months, we may not refill your medication.
[2018-09-27] MEDS ORDERED: Tetan/Diph/Pertus SYR(Tdap)* 0.5 ML SYR(BOOSTRIX) use SYR IM ONE (00:24)
[2018-09-27 00:54] VITALS: BP 142/91
== END 2018-09-27 00:51 | disposition home or self-care (01) ==
LOC: ED 21:30
DX: S01.511A Laceration without foreign body of lip, initial encounter (principal); S03.2XXA Dislocation of tooth, initial encounter; Z23 Encounter for immunization; W19.XXXA Unspecified fall, initial encounter; Y92.89 Other specified places as the place of occurrence of the external cause; Y99.0 Civilian activity done for income or pay; Z88.1 Allergy status to other antibiotic agents; Z88.2 Allergy status to sulfonamides; Z87.891 Personal history of nicotine dependence
CPT/HCPCS: 12011; 90471; 90715; 96372; 99282